=== PATIENT | female | born 2000 | race American Indian/Alaskan Native ===

== ENCOUNTER 2021-02-12 15:22 | Emergency (ER) | payer OTHER ==
[2021-02-12 16:31] VITALS: BP 149/52
--- NOTE | 2021-02-12 17:19 | Emergency Department Report ---
Suture/Staple Removal - HPI Chief Complaint: Laceration/Recheck/Suture Stated Complaint: SUTURE REMOVAL Time Seen by Provider: 02/12/21 16:59 When Sutures or Addy Placed: 01/29/21 Wound Location: right upper breast ED Review of Systems ROS: Stated complaint: SUTURE REMOVAL Other details as noted in HPI Comment: All other systems reviewed and negative ED Past Medical Hx - Past Medical History Previous Medical History?: No - Surgical History Past Surgical History?: No - Social History Smoking Status: Never Smoker Substance Use Type: None - Medications Home Medications: Home Medications Medication Instructions Recorded Confirmed Last Taken Type Ibuprofen [Motrin 800 MG tab] 800 mg PO Q8HR PRN #30 tablet 03/18/19 Unknown Rx Suture Removal Exam - Exam General: Vital signs noted. No distress. Alert and acting appropriately. Wound: No Pathologic Erythema, No Tenderness, No Drainage, No Pus, No Wound Dehiscence Other Systems: All other systems reviewed and are unremarkable. ED Course Vital Signs 02/12/21 16:30 Temperature 98.9 F Pulse Rate 61 Respiratory 18 Rate Blood Pressure 149/52 O2 Sat by Pulse 96 Oximetry ED Recheck MDM - Medical Decision Making Patient is a 20-year-old female presents emergency room with complaints of suture removal. She states that on 01/29/2021 she was holding a glass cup and accidentally slipped and fell and the glass broke and cut her right upper breast. She states that she was in [place] at the time and had a laceration repair performed there. She denies any other injury. She states that her tetanus was up-to-date. She denies any fever, drainage, increasing pain, increasing swelling. There are sutures in place to the right upper breast, appears clean, dry, intact, no signs of wound dehiscence, no signs of infection. All sutures removed without difficulty, no wound dehiscence, no drainage. Patient tolerated well. Advised patient may use Mederma [id number] to help with scarring. Follow-up with your primary care doctor. Return to emergency room for new or worsening symptoms. Critical care attestation.: If time is entered above; I have spent that time in minutes in the direct care of this critically ill patient, excluding procedure time. ED Disposition Clinical Impression: Encounter for removal of sutures Disposition: - TO HOME OR SELFCARE Is pt being admited?: No Does the pt Need Aspirin: No Condition: Stable Instructions: Wound Closure Removal, Care After Additional Instructions: may use Mederma [id number] to help with scarring. Follow-up with your primary care doctor. Return to emergency room for new or worsening symptoms. Referrals: KHALIF CUADRA MD [Staff Physician] - 2-3 Days [facility] [Provider Group] - 2-3 Days Time of Disposition: 17:19 Print Language: TELUGU
== END 2021-02-12 17:20 | disposition home or self-care (01) ==
LOC: ED 15:22
DX: S21.011A Laceration without foreign body of right breast, initial encounter (principal); Z48.02 Encounter for removal of sutures; X58.XXXA Exposure to other specified factors, initial encounter; Y93.89 Activity, other specified; Y92.89 Other specified places as the place of occurrence of the external cause; Y99.8 Other external cause status